=== PATIENT | male | born 2000 | race Two or more races ===

== ENCOUNTER 2025-04-20 08:45 | Emergency (ER) | payer SELFPAY ==
--- NOTE | ~2025-04-20 | XR_ITS ---
EXAMINATION: XR LUMBOSACRAL SPINE CLINICAL INFORMATION: right back pain COMPARISON: None available. TECHNIQUE: Three views of the lumbosacral spine. FINDINGS: There are 5 nonrib-bearing lumbar sequence. There is mild levoscoliosis. Vertebral body height and alignment is preserved. Disc spaces are preserved. XR/XR lumbar spine 2-3V IMPRESSION: Mild levoscoliosis. Electronically signed by: Luis M James MD 04/20/2025 12:47 PM [facility]
[2025-04-20 09:00] VITALS: BP 141/63; PULSE 82; RESP 20; TEMP 36.6; O2SAT 99; BMI 30.7
--- NOTE | 2025-04-20 10:08 | ED.BACK ---
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 Pain is locazlied to right lower back/buttock area. No radiation. Denies any blunt injury, trauma, fall. He states he may have lifted something heavy at work. 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 Denies IVDU. Denies fever, chills, neck pain, bowel or bladder incontinence or retention, numbness/tingling/weakness in the lower extremities, dysuria, hematuria, saddle anesthesia. Related Data Previous Rx's ?Medication ?Instructions ?Recorded cyclobenzaprine 5 mg tablet 5 mg PO TID PRN muscle pain 3 days 04/20/25 #9 tabs lidocaine 5 % topical patch See Rx Instructions topical 04/20/25 .COMPLEX #15 ea Allergies Allergy/AdvReac Type Severity Reaction Status Date / Time No Known Allergies Allergy Verified 04/20/25 09:04 Review of Systems Review of Systems: Constitutional: No fever, chills, fatigue, night sweats, weight changes ENT/Mouth: No ear pain, hearing loss, nasal congestion, sinus pain, rhinorrhea, sore throat Eyes: No eye pain, swelling, redness, vision changes, discharge Cardio: No chest pain, palpitations, ARCEO, orthopnea, peripheral edema Pulm: No SOB, cough, sputum, wheezing, dyspnea, hemoptysis GI: No nausea, vomiting, hematemesis, abdominal pain, diarrhea, constipation, hematochezia, melena : No irregular bleeding, dysuria, frequency, urgency, hesitancy, hematuria, flank pain, urinary flow changes, urinary incontinence or retention MSK: +back pain, No neck pain, joint pain, myalgias Skin: No lesions, rashes Neuro: No weakness, numbness, paresthesias, LOC, dizziness, headache All other systems reviewed and are negative. [facility] Past Medical History Attestation statement: The following information was validated with the patient. Source: old records reviewed and nursing notes reviewed Physical Exam Vital Signs: Vital Signs: Last Vital Signs Temp 98.1 F 04/20/25 14:24 Pulse 75 04/20/25 14:24 Resp 18 04/20/25 14:24 BP 107/52 L 04/20/25 14:24 Pulse Ox 98 04/20/25 14:24 O2 Del Method Room Air 04/20/25 14:24 BMI result Body Mass Index 30.7 Vital signs stable, afebrile Const: General: cooperative, healthy appearing, comfortable, no acute distress, alert, awake and Physically active Orientation/consciousness: patient oriented x3 HEENT: Head: Yes normal to inspection, Yes normocephalic and Yes atraumatic Eyes: General: appearance normal, both eyes and all related structures Pupils: Equal, round and reactive pupils present EOM: EOMs intact bilaterally Neck: Other: + no cervical midline spinous tenderness or step-off deformity. Neck: Yes normal visual inspection, Yes full ROM and Yes no meningeal signs Resp: Effort & Inspection: normal respiratory effort Auscultation: clear to auscultation bilaterally Cardio: Rate: regular rate Rhythm: regular rhythm GI: Inspection: Yes normal to inspection Palpation (GI): Soft to palpation and nontender : General: Yes no CVA tenderness Back/Spine/Pelvis: Other: No midline spinous tenderness or step-off deformity. There is reproducible tenderness to palpation over the right lumbar paraspinal musculature. no skin changes, no palpable deformities, masses. Back: no CVA tenderness Neuro: Other: Strength 5/5 intact throughout.? No saddle anesthesia.? Sensation intact to light touch.? Neurovascular intact distally.? General: patient oriented x3, gait normal and no meningeal signs Cranial nerves: Yes Equal, round and reactive pupils present Gait exam (Neuro): Normal gait present Course Course Course Narrative: Patient medicated with Flexeril, Toradol, lidocaine patch and Valium with improvement. Lumbar x-ray negative for fractures. UA shows small amount of blood, no infection. Possibility of small renal stone passage however patient has no CVAT. I do not feel as though further imaging is warranted at this time. Patient has remained stable throughout ED visit today. Discussed worrisome signs and symptoms and when to return to the ED. All questions answered at this time. Patient is agreeable with disposition and stable for discharge. Medications Administered Discontinued Medications Generic Name Dose Route Start Last Admin Trade Name Kimberly PRN Reason Stop Dose Admin Cyclobenzaprine HCl 5 mg 04/20/25 10:49 04/20/25 11:12 Cyclobenzaprine Hcl 5 Mg Tablet PO 04/20/25 10:50 5 mg ONCE ONE Administration Diazepam 5 mg 04/20/25 12:28 04/20/25 12:40 Diazepam 5 Mg Tablet PO 04/20/25 12:29 5 mg ONCE ONE Administration Ketorolac Tromethamine 30 mg 04/20/25 10:49 04/20/25 11:12 Ketorolac Tromethamine 30 Mg/Ml Vial IM 04/20/25 10:50 30 mg ONCE ONE Administration Lidocaine 1 patch 04/20/25 10:49 04/20/25 11:12 Lidocaine 4 % Patch Adh..Patch TRANSDERMA 04/20/25 10:50 1 patch ONCE ONE Administration Protocol Medical Decision Making Medical Decision Making [facility] Narrative: 25-year-old male with no significant past medical history presents to the ED today for right-sided lower back pain x1 week. vitals are stable. he is well appearing and in NAD. on exam, No midline spinous tenderness or step-off deformity. There is reproducible tenderness to palpation over the right lumbar paraspinal musculature. no skin changes, no palpable deformities, masses. there is no CVAT. Concern for MSK sprain/strain, fracture, subluxation, disc herniation, sciatica. presentation not consistent w/ obstruction ureteral stone, UTI, pyelonephritis, however will check urine. Unlikely cord compression, cauda equina, Guillain-[place], epidural abscess. Plan for UA, imaging, pain control, re-evaluation. Differential Diagnosis Differential Diagnoses: The differential diagnosis associated with the presentation includes as above Admission/Observation Not indicated. Lab Data [facility] Lab Attestation statement: I reviewed the patient's lab results. as above. Labs: Lab Results 04/20/25 Range/Units 13:10 Urine Color Yellow Urine Appearance Clear Urine pH 7.5 (5.0-9.0) Ur Specific Index 1.015 (1.005-1.025) Urine Protein Negative (Neg-Trace) mg/dL Urine Glucose (UA) Negative (Negative) mg/dL Urine Ketones Negative (Negative) mg/dL Urine Blood Small (1+) H (Negative) Urine Nitrite Negative (Negative) Ur Leukocyte Esterase Negative (Negative) Urine RBC 6-10 H (0-2) /HPF Urine WBC 0-5 (0-5) /HPF Ur Squamous Epith Cells 0-2 (0-2) /HPF Urine Bacteria None Seen (None Seen) Hyaline Casts 0-2 (0-2) /LPF Independent Interpretation I performed an independent interpretation of an: Plain X-Ray Interpretation: lumbar xr without fracture Radiology Impression Discussion of test interpretation with radiology: I have reviewed the radiologist's reading. Radiologist Impression: Procedure(s): XR lumbar spine 2-3V Accession Number(s): [id number] cc: Physician,None ; Mary Ann Royal~ Reason for Exam: right back pain EXAMINATION: XR LUMBOSACRAL SPINE CLINICAL INFORMATION: right back pain COMPARISON: None available. TECHNIQUE: Three views of the lumbosacral spine. FINDINGS: There are 5 nonrib-bearing lumbar sequence. There is mild levoscoliosis. Vertebral body height and alignment is preserved. Disc spaces are preserved. XR/XR lumbar spine 2-3V IMPRESSION: Mild levoscoliosis. Electronically signed by: Luis M James MD 04/20/2025 12:47 PM [facility] External Record Review External record reviewed: Inpatient record Prescription Management I considered prescription management with: Pain Medication and Other (Muscle relaxer) Social Determinants Patient?s care significantly limited by Social Determinants of Health including: Other Social Determinant of Health Critical Care Time Critical Care Time Critical Care Time: No Discharge Plan Discharge Clinical Impression: Lumbar back pain Patient Disposition: Home, Self-Care Instructions: Low Back Strain (ED), Lower Back Exercises (ED) Additional Instructions: You were evaluated in the Emergency Department today for your back pain.? Your evaluation did not show signs of medical conditions requiring emergent intervention at this time. Avoid bending, lifting, or twisting over the next week. Use ice several times per day for 20 minutes at a time for the next 48 hours and then change to heat. I recommend you take 600mg ibuprofen every 6 hours or tylenol 650mg every 6 hours as needed for pain. If needed, you can alternate these medications so that you take one medication every 3 hours. For example, at noon take ibuprofen, then at 3pm take tylenol, then at 6pm take ibuprofen. Flexeril is a muscle relaxer. Take this at night as it makes you drowsy. Do not drive, drink alcohol, or operate machinery while taking it. Lidoderm patches are numbing patches. Apply to painful areas. Please schedule an appointment for follow-up with your primary care provider this week for further evaluation of your symptoms. Return to the Emergency Department if you experience worsening back pain, difficulty walking, fevers, numbness, tingling, incontinence, or any other concerning symptoms. In the case of an emergency call 911. Prescriptions: New lidocaine 5 % adhesive patch,medicated See Rx Instructions .ROUTE .COMPLEX Qty: 15 0RF Rx Instructions: leave on most painful area for up to 12 hrs cyclobenzaprine 5 mg tablet 5 mg PO TID PRN (Reason: muscle pain) 3 Days Qty: 9 0RF Referrals: Physician,None [Primary Care Provider, Medical] Stand Alone Forms: Work/School Release Interventions: ED Discharge Assessment Last Done: 04/20/25 14:24 Discharge Date/Time: 04/20/25 14:40 Print Language: Setswana
[2025-04-20] MEDS: Lidocaine 4 % Patch ADH..PATCH 1 PATCH TRANSDERMA (11:12)
[2025-04-20 12:54] VITALS: BP 107/52; PULSE 75; RESP 18; TEMP 36.7; O2SAT 98
[2025-04-20 13:42] LABS: Appearance Urine Clear; Glucose Urine UA Negative (Negative); PH 7.5 (5.0-9.0); Specific Gravity - Urine 1.015 (1.005-1.025); UMIC TRIGGER UACC YES
[2025-04-20 14:24] VITALS: BP 107/52; PULSE 75; RESP 18; TEMP 36.7; O2SAT 98
== END 2025-04-20 14:40 | disposition home or self-care (01) ==
PROVIDERS: Physician Assistant Medical; Emergency Provider Emergency Medicine
DX: M54.50 Low back pain, unspecified (principal); M41.86 Other forms of scoliosis, lumbar region
CPT/HCPCS: 72100; 81001; 96372; 99284; J1885

== ENCOUNTER → 2025-04-20 12:28 | Outpatient (BNV) | payer SELFPAY | PROVIDERS: Emergency Provider Emergency Medicine; Visit Provider Radiology Diagnostic Radiology | DX: M41.86 Other forms of scoliosis, lumbar region (principal) | CPT/HCPCS: 72100 ==